=== PATIENT | female | born 1950 | race Caucasian/White ===

== ENCOUNTER 2017-04-22 14:30 | Inpatient (IN) | payer MEDICARE ==
[~2017-04-22] VITALS: Ht 152 cm; Wt 102.0 kg
[2017-04-23 05:38] LABS: HCT 35.2 % (37.0-47.0); HGB 11.4 g/dl (12.5-16.0); MCH 29.5 pg (25.0-31.0); MCHC 32.4 g/dL (32.0-36.0); MPV 10.9 fL (6.0-9.5); RBC 3.87 M/uL (4.20-5.40); RDW 13.3 % (11.5-14.0); WBC 10.2 K/uL (4.0-10.5)
[2017-04-23 06:03] LABS: CREATININE 0.9 mg/dL (0.5-1.0); POTASSIUM 4.1 mmol/L (3.5-5.1)
[2017-04-24 05:19] LABS: HCT 30.4 % (37.0-47.0); HGB 9.9 g/dl (12.5-16.0); MCH 29.6 pg (25.0-31.0); MCHC 32.6 g/dL (32.0-36.0); MCV 90.7 fL (78.0-100.0); RBC 3.35 M/uL (4.20-5.40); RDW 13.3 % (11.5-14.0); WBC 7.5 K/uL (4.0-10.5)
[2017-04-24 05:36] LABS: CREATININE 0.9 mg/dL (0.5-1.0); POTASSIUM 4.1 mmol/L (3.5-5.1)
[2017-04-25 06:39] LABS: HCT 29.6 % (37.0-47.0); HGB 9.6 g/dl (12.5-16.0); MCH 29.5 pg (25.0-31.0); MCHC 32.4 g/dL (32.0-36.0); MCV 91.1 fL (78.0-100.0); RBC 3.25 M/uL (4.20-5.40)
[2017-05-03] MEDS ORDERED: FEOSOL325 MG PO (10:55)
[2017-05-03] MEDS ORDERED: PRILOSEC20 MG PO (10:56)
[2017-05-03] MEDS ORDERED: PERCOCET 5/3251 TAB PO (10:56)
[2017-05-03] MEDS ORDERED: TRIAMTERENE-HC1 EAC1 PO (10:57)
[2017-05-03] MEDS ORDERED: CELEXA20 MG PO (10:57)
[2017-05-03] MEDS ORDERED: VOLTAREN **OUT75 MG PO (10:58)
[2017-05-03] MEDS ORDERED: LOVAZA1 GM PO (11:01)
[2017-05-03] MEDS ORDERED: VITAMIN D5000 UNIT PO (11:01)
[2017-05-03] MEDS ORDERED: OSTEO BI-FLEX1 EAC3 PO (11:02)
[2017-05-03] MEDS ORDERED: LAXATIVE5 M1 PO (11:02)
== END 2017-04-25 16:10 | DRG 470 ==
LOC: FMS 14:30
PROVIDERS: ADMIT Legal Medicine
PROC: 8E0YXBZ Computer Assisted Procedure of Lower Extremity (ICD-10-PCS; 2017-04-22)
PROC: 0SRD0J9 Replacement of Left Knee Joint with Synthetic Substitute, Cemented, Open Approach (ICD-10-PCS; principal; 2017-04-22 14:30)
DX: M17.12 Unilateral primary osteoarthritis, left knee (principal); I10 Essential (primary) hypertension; M21.162 Varus deformity, not elsewhere classified, left knee; M71.22 Synovial cyst of popliteal space [Baker], left knee; K21.9 Gastro-esophageal reflux disease without esophagitis; Z96.643 Presence of artificial hip joint, bilateral
CPT/HCPCS: 36415; 73560; 80048; 86850; 86900; 86901; 87640; 87641; 87900; 88311; 94010; 94760; 94762; 97110; 97116; 97162; 97165; 97530-GP; 97535; C1713; C1776; J0131; J0697; J1885; J2270; J2405; J2704; J2795; J3010